=== PATIENT | female | born 1955 | race Caucasian/White ===

== ENCOUNTER 2019-04-09 06:55 | Day surgery (SDC) | payer BC ==
[~2019-04-09] VITALS: Ht 162.6 cm; Wt 77.6 kg
[2019-04-09] VITALS (10 sets, daily range): BP systolic 116–167; BP diastolic 59–79; PULSE 74–88; RESP 15–22; Ht 162.6 cm; Wt 77.6 kg
[2019-04-09] MEDS ORDERED: TIMOLOL MALEATE/PF 0.5% OCCUDOSE (0.3 ML) ONE (07:23)
[2019-04-09] MEDS ORDERED: NA BICARB 50 MEQ/50 ML VIAL ONE (07:23)
[2019-04-09] MEDS ORDERED: EPINEPHrine 1 MG INJ ONE (07:23)
[2019-04-09] MEDS ORDERED: LIDOCAINE 1% (MPF) 5 ML VIAL ONE (07:23)
[2019-04-09] MEDS ORDERED: OMEP20CA16 PO (07:53)
[2019-04-09] MEDS ORDERED: AMLO-145 PO (07:54)
[2019-04-09] MEDS ORDERED: PRAV20TA63 PO (07:54)
[2019-04-09] MEDS ORDERED: LACTATED RINGER'S 1,000 ML IV SCH (08:00)
[2019-04-09] MEDS ORDERED: CYCLOPENTOLATE 2% 2 ML OPH OPER SCH (08:30)
[2019-04-09] MEDS ORDERED: NEPAFENAC 0.1% 3 ML OPH OPER SCH (08:30)
[2019-04-09] MEDS ORDERED: PHENYLephrine 10% 5 ML OPH OPER SCH (08:30)
[2019-04-09] MEDS ORDERED: MOXIFLOXACIN 0.5% 3 ML OPH OPER ONE (08:30)
--- NOTE | 2019-04-09 08:31 | PREAC ---
Date/Time of Note Date/Time of Note DATE: 04/09/19 TIME: 08:27 Anesthesia Eval and Record Evaluation Time Pre-Procedure Interview DATE: 04/09/19 TIME: 08:27 Age 63 Sex female NPO: 8 hrs Preoperative diagnosis left Cataract Planned procedure Left CE with IOL implant Past Medical History Past Medical History: Includes Cardio: HTN, Dyslipidemia GI: GERD Surgery & Anesthesia Issues No known issue Meds Anticoagulation: No Beta Jerry within 24 hr: No Reason Beta Jerry not given: Pt. not on B-Jerry Reported Medications Amlodipine Besylate* (Amlodipine Besylate*) 5 Mg Tablet, 5 MG PO DAILY, #30 TAB 04/09/19 Pravastatin Sodium* (Pravastatin Sodium*) 20 Mg Tablet, 20 MG PO HS, TAB 04/09/19 Omeprazole* (Omeprazole*) 20 Mg Capsule.dr, 20 MG PO DAILY, #30 CAP 04/09/19 Current Medications Lactated Ringer's 1,000 ml @ 30 mls/hr Q24H IV Last administered on 04/09/19at 08:08; Admin Dose 30 MLS/HR; Start 04/09/19 at 08:00 Moxifloxacin HCl (Vigamox) 1 drop ONCE ONCE OPER Last administered on 04/09/19at 08:08; Admin Dose 1 DROP; Start 04/09/19 at 08:30; Stop 04/09/19 at 08:31 Cyclopentolate HCl (Cyclogyl 2% Oph) 1 drop Q5 MIN X 3 OPER Last administered on 04/09/19at 08:08; Admin Dose 1 DROP; Start 04/09/19 at 08:30 Phenylephrine HCl (Ak-Dilate 10%) 1 drop Q5 MIN X3 OPER Last administered on 04/09/19at 08:08; Admin Dose 1 DROP; Start 04/09/19 at 08:30 Nepafenac ([place] Oph) 1 drop Q5 MIN X3 OPER Last administered on 04/09/19at 08:08; Admin Dose 1 DROP; Start 04/09/19 at 08:30 Meds reviewed: Yes Allergies Coded Allergies: levofloxacin (Verified Allergy, Unknown, 04/09/19) Allergies Reviewed: Yes Labs/Studies Labs Reviewed: Reviewed by anesthesiologist test: N/A Studies: ECG, Other (ef 60%) Pre-procedure Exam Last vitals Vital Signs Date Temp Pulse Resp B/P (MAP) Pulse Ox O2 O2 Flow FiO2 Time Delivery Rate 04/09/19 97.8 88 16 167/79 96 08:23 (108) Airway: Adequate mouth opening, Adequate thyromental dist Mallampati: Mallampati II Teeth: Normal Lung: Normal Heart: Normal ASA Physical Status ASA physical status: 2 Emergency: None Planned Anesthetic General/MAC: MAC Planned Pain Management Parenteral pain med, Local by surgeon Pre-operative Attestations Prior to commencing anesthesia and surgery, the patient was re-evaluated, there was verification of: *The patient's identity *The results of appropriate recent lab work and preoperative vital signs *The above evaluation not changing prior to induction *Anesthetic plan, risk benefits, alternative and complications discussed with patient/family; questions answered; patient/family understands, accepts and wishes to proceed. JANEEN MARTINEZ [employer] SUPERVISOR Apr 09, 2019 08:31
--- NOTE | 2019-04-09 08:36 | HPN ---
Date/Time of Note Date/Time of Note DATE: 04/09/19 TIME: 08:36 Interval H&P Admission Note Pt. seen H&P reviewed: No system changes RIGOBERTO HENLEY MD Apr 09, 2019 08:36
[2019-04-09] MEDS ORDERED: FENTAnyl 50 MCG/ML VIAL ONE ×2 (08:40→10:08)
[2019-04-09] MEDS ORDERED: MIDAZOLAM 1 MG/ML 2 ML INJ ONE ×2 (08:40→09:54)
[2019-04-09] MEDS ORDERED: LIDOCAINE 1% (MPF) 5 ML VIAL INJ ONE (08:40)
--- NOTE | 2019-04-09 08:43 | SIPON ---
Date/Time of Note Date/Time of Note DATE: 04/09/19 TIME: 08:39 Operative Report Preoperative Diagnosis senile nuclear sclerotic cataract Postoperative Diagnosis same Operation/Procedure Performed cataract extraction with lens implnt left eye Surgeon see signature line speech pathologist assistant none Anesthesia: MAC Estimated blood loss: none Transfusion Required none Specimen none Grafts/Implants posterior chamber implant Complications none RIGOBERTO HENLEY MD Apr 09, 2019 08:43
[2019-04-09] MEDS ORDERED: LIDOCAINE 2% (SDV) 5 ML INJ ONE (09:10)
[2019-04-09] MEDS ORDERED: PROPOFOL 20 ML ONE (09:10)
[2019-04-09] MEDS ORDERED: CARBACHOL 0.01% 1.5 ML OPH INJ LEFT EYE ONE ×2 (09:35→09:44)
[2019-04-09] MEDS ORDERED: CARBACHOL 0.01% 1.5 ML OPH INJ ONE ×2 (09:41→10:29)
[2019-04-09] MEDS ORDERED: TIMOLOL 0.5% 5 ML OPH LEFT EYE ONE (09:46)
[2019-04-09] MEDS ORDERED: LABETALOL HCL 20MG INJ IV PRN (10:30)
[2019-04-09] MEDS ORDERED: FENTAnyl 50 MCG/ML VIAL IV PRN ×2 (10:30)
[2019-04-09] MEDS ORDERED: ONDANSETRON 4 MG INJ IV PRN (10:30)
[2019-04-09] MEDS ORDERED: OXYCODONE/ACETAMINOPHEN (5/325) TAB PO PRN ×2 (10:30)
[2019-04-09] MEDS ORDERED: HYDROmorphONE 1 MG/5 ML IV SYRINGE IV PRN (10:30)
--- NOTE | 2019-04-09 10:30 | SIPON ---
Date/Time of Note Date/Time of Note DATE: 04/09/19 TIME: 10:25 Operative Report Preoperative Diagnosis r sclerotic cataract' Postoperative Diagnosis same Operation/Procedure Performed cataract extraction with anterior chamber lens implant Surgeon see signature line assistant director of nursing none Anesthesia: MAC Estimated blood loss: none Transfusion Required none Specimen none Grafts/Implants anterior chamber lens implantnone Complications posterior lens capsue tearr RIGOBERTO HENLEY MD Apr 09, 2019 10:30
--- NOTE | 2019-04-09 10:32 | PAC ---
Date/Time of Note Date/Time of Note DATE: 04/09/19 TIME: 10:31 Post-Anesthesia Notes Post-Anesthesia Note Last documented vital signs Vital Signs Date Temp Pulse Resp B/P (MAP) Pulse Ox O2 O2 Flow FiO2 Time Delivery Rate 04/09/19 97.8 88 16 167/79 96 08:23 (108) Activity: WNL Respiratory function: WNL Cardiovascular function: WNL Mental status: Baseline Pain reasonably controlled: Yes Hydration appropriate: Yes Nausea/Vomiting absent: Yes Comments BP 141/77 Spo2 97% HR 88 RR 12 T 98F JANEEN MARTINEZ LEAK PATCHER Apr 09, 2019 10:31
--- NOTE | 2019-04-09 14:48 | OPR ---
DATE OF OPERATION: PREOPERATIVE DIAGNOSIS: Senile nuclear sclerotic cataract, left eye. POSTOPERATIVE DIAGNOSIS: Senile nuclear sclerotic cataract, left eye. PLANNED PROCEDURE: KPE left eye. DESCRIPTION OF PROCEDURE: Following standard preparation and draping of the patient, a speculum was placed for immobilization of the lids. An access port was made at the 4:30 o'clock posterior limbal position, following which the anterior chamber was irrigated with a small amount of nonpreserved lido anayeli. The chamber was now filled with viscoelastic tissue. A 3 mm anterior limbal incision was mad e in the superior temporal quadrant of the cornea following which a circular capsulotomy was performe d. The major portion of the nucleus and cortex was now dislocated from the capsular bag using hydrod issection. The KPE tip was introduced into the eye and controlling tumbling of the lens, the entire cortex was easily removed in the plane of the iris. The irrigating aspirating tip was now introduced into the eye and the peripheral cortical material was being aspirated. It was suddenly noted that t here was capsular separation in the inferonasal quadrant of the eye. As I watched, it slowly progres sed too big to allow a posterior chamber lens. As a result, an anterior capsulotomy was performed af ter irrigation was placed through the additional access port into the anterior chamber and a posterio r sclerotomy performed 3 mm posterior to the limbus in the supratemporal quadrant. The anterior vitr ectomy was completed, and following with gentle pressure of the incision, indicated that there was no vitreous adherent to the wound. Miochol was now placed in the eye, and after an adequate closure of the pupil, the Initial incision was opened wide enough to accept an anterior chamber lens. This kailyn s was positioned properly using a Sheet's glide to guide positioning of the lens. The enlarged incis ion was now closed with a running shoelace type of suture. At the end of the procedure, the lens kurt eared to be in perfect position. The chamber was well formed and the cornea remained clear. The eye was irrigated with 5% Betadine solution. A drop of moxifloxacin and timolol was placed in the eye. A light dressing was placed. The patient returned to the recovery room in satisfactory condition. Dictated By: RIGOBERTO GONZALES/RYAN Conf#: [id number] [facility]#: [id number]
== END 2019-04-09 11:38 | disposition home or self-care (01) ==
LOC: SDS 06:55
PROVIDERS: ATTEND Ophthalmology
DX: H25.12 Age-related nuclear cataract, left eye (principal); I10 Essential (primary) hypertension; E78.5 Hyperlipidemia, unspecified
CPT/HCPCS: 66984; J0171; J2250; J3010; V2630